=== PATIENT | male | born 1980 | race African-American/Black ===

== ENCOUNTER 2020-05-17 14:25 | Outpatient (CLI) | payer BC, OTHER ==
[2020-05-17 14:49] LABS: PLATELET COUNT 192 K/uL (142-355)
[2020-05-17 15:02] LABS: POTASSIUM 3.8 mmol/L (3.6-5.2)
== END 2020-05-17 23:06 | disposition home or self-care (01) ==
LOC: LAB 14:25 → RAD 14:25 → LAB 23:06
PROVIDERS: Internal Medicine
DX: U07.1 COVID-19 (principal); Z20.828 Contact with and (suspected) exposure to other viral communicable diseases
CPT/HCPCS: 36415; 80053; 81000; 85027; 87502; 87635; G2023; U0003

== ENCOUNTER 2020-05-23 19:14 | Inpatient (IN) | payer BC, OTHER ==
[~2020-05-23] VITALS: Ht 177.8 cm; Wt 133.4 kg
[2020-05-23 19:20] VITALS: BP 153/83; TEMP 102.7
[2020-05-23 20:22] LABS: PLATELET COUNT 234 K/uL (142-355)
[2020-05-23 21:28] VITALS: BP 145/75; TEMP 98.7
[2020-05-24] VITALS (7 sets, daily range): BP systolic 120–157; BP diastolic 58–88; TEMP 98.1–101.3; Ht 177.8 cm; Wt 133.4 kg
[2020-05-24 05:36] LABS: PLATELET COUNT 231 K/uL (142-355)
[2020-05-24 05:41] LABS: POTASSIUM 4.3 mmol/L (3.6-5.2)
[2020-05-24] MEDS ORDERED: MEDROL DOSEPAK4 MG PO (06:19)
[2020-05-24] MEDS ORDERED: PULMICORT180 MCG/AC INH (06:22)
[2020-05-24] MEDS ORDERED: TESSALON PER100 MG PO (06:23)
[2020-05-24] MEDS ORDERED: ZITHROMAX500 MG PO (06:26)
[2020-05-25] VITALS: BP 139/86; TEMP 98.9
[2020-05-25 04:01] VITALS: BP 149/78; TEMP 98.8
[2020-05-25 05:41] LABS: PLATELET COUNT 280 K/uL (142-355)
[2020-05-25 05:56] LABS: POTASSIUM 4.1 mmol/L (3.6-5.2)
[2020-05-25 08:00] VITALS: BP 133/67; TEMP 98.5
[2020-05-25 12:00] VITALS: BP 146/70; TEMP 98.1
[2020-05-25 16:06] VITALS: BP 144/84; TEMP 97.4
[2020-05-25 20:00] VITALS: BP 140/73; TEMP 97.6
[2020-05-26] VITALS (8 sets, daily range): BP systolic 122–154; BP diastolic 65–747; TEMP 97.5–99.1
[2020-05-26 05:43] LABS: PLATELET COUNT 351 K/uL (142-355)
[2020-05-26 06:08] LABS: POTASSIUM 4.5 mmol/L (3.6-5.2)
[2020-05-27] VITALS (20 sets, daily range): BP systolic 109–168; BP diastolic 56–89; TEMP 98.8–100.2
[2020-05-27 06:31] LABS: POTASSIUM 4.4 mmol/L (3.6-5.2)
[2020-05-27 06:44] LABS: PLATELET COUNT 392 K/uL (142-355)
[2020-05-28] VITALS (25 sets, daily range): BP systolic 126–167; BP diastolic 65–93; TEMP 99.5–102.5
[2020-05-28 06:14] LABS: POTASSIUM 3.6 mmol/L (3.6-5.2)
[2020-05-28 06:25] LABS: PLATELET COUNT 411 K/uL (142-355)
[2020-05-29] VITALS (23 sets, daily range): BP systolic 117–165; BP diastolic 67–93; TEMP 98.5–100.2
[2020-05-29 06:49] LABS: PLATELET COUNT 259 K/uL (142-355)
[2020-05-29 06:58] LABS: POTASSIUM 3.5 mmol/L (3.6-5.2)
[2020-05-30] VITALS (23 sets, daily range): BP systolic 106–142; BP diastolic 58–90; TEMP 97.9–101.5
[2020-05-30 07:08] LABS: PLATELET COUNT 261 K/uL (142-355)
[2020-05-30 07:33] LABS: POTASSIUM 3.8 mmol/L (3.6-5.2)
[2020-05-31] VITALS (20 sets, daily range): BP systolic 105–314; BP diastolic 61–83; TEMP 83–99.3
[2020-05-31 06:26] LABS: PLATELET COUNT 306 K/uL (142-355)
[2020-05-31 06:27] LABS: POTASSIUM 3.8 mmol/L (3.6-5.2)
[2020-06-01 00:01] VITALS: BP 139/88; TEMP 100
[2020-06-01 01:00] VITALS: BP 119/76
[2020-06-01 02:00] VITALS: BP 120/65
== END 2020-06-01 08:00 | disposition expired | DRG 177 ==
LOC: ED 19:14 → ICU 20:50 → MED/SURG 20:50 → PCU 05-26 18:00 → ICU 05-26 21:06
PROVIDERS: Emergency Medicine Emergency Medical Services; Internal Medicine Endocrinology, Diabetes & Metabolism; ADMIT Internal Medicine
PROC: 02HV33Z Insertion of Infusion Device into Superior Vena Cava, Percutaneous Approach (ICD-10-PCS; principal; 2020-05-27)
PROC: B548ZZA Ultrasonography of Superior Vena Cava, Guidance (ICD-10-PCS; 2020-05-27)
DX: U07.1 COVID-19 (principal); J96.01 Acute respiratory failure with hypoxia; J18.8 Other pneumonia, unspecified organism; Z68.41 Body mass index [BMI] 40.0-44.9, adult; E11.65 Type 2 diabetes mellitus with hyperglycemia; D72.828 Other elevated white blood cell count; E66.01 Morbid (severe) obesity due to excess calories
CPT/HCPCS: 31500; 36415; 36571; 36591; 36600; 80053; 82805; 82947; 83605; 83735; 85007; 85027; 87040; 87070; 87077; 87185; 87186; 87205; 92950; 94640; 94660; 94664; 94668; 94760; 96360; 96361; 96365; 96375; 99284; C1751; J0132; J0171; J0330; J0461; J0696; J1100; J1650; J1815; J1940; J1956; J2060; J2250; J2270; J3490